=== PATIENT | female | born 1970 | race Caucasian/White ===

== ENCOUNTER 2022-04-14 08:21 | Emergency (ER) | payer BC ==
[2022-04-14] MEDS ORDERED: predniSONE 20 MG TAB ONE (08:39)
[2022-04-14 20:41] LABS: SARS-CoV-2 PCR by NAA Not Detected (NotDetected)
== END 2022-04-14 09:25 | disposition home or self-care (01) ==
LOC: NAV ERS 08:21
DX: J44.1 Chronic obstructive pulmonary disease with (acute) exacerbation (principal); E03.9 Hypothyroidism, unspecified; J44.9 Chronic obstructive pulmonary disease, unspecified; F17.210 Nicotine dependence, cigarettes, uncomplicated; Z79.899 Other long term (current) drug therapy; Z20.822 Contact with and (suspected) exposure to COVID-19
CPT/HCPCS: 71046; 87804; 94640; 94760; J7512; J7620; U0003; U0005